=== PATIENT | female | born 1935 | race African-American/Black ===

== ENCOUNTER 2019-07-23 22:35 | Inpatient (IN) | payer MEDICARE, MEDICAID ==
[~2019-07-23] VITALS: Ht 172.7 cm; Wt 68.0 kg
[2019-07-23 23:59] LABS: BASOPHILS % 0.4 % (0.0-2.0); HEMATOCRIT. 40.7 % (36.0-48.0); HEMOGLOBIN. 13.1 g/dL (12.0-16.0); LYMPHOCYTES % 23.4 % (20.0-50.0); MEAN CORPUSCULAR HEMOGLOBIN 29.1 pg (28.0-32.0); MEAN CORPUSCULAR VOLUME 90.5 fL (81.0-99.0); MEAN PLATELET VOLUME 8.2 fl (7.4-10.4); MONOCYTES % 8.9 % (2.0-8.0); NEUTROPHILS % 67.3 % (40.0-76.0); PLATELET 224 x1000/uL (130-400); RED CELL DISTRIBUTION WIDTH 15.3 % (11.6-14.6)
[2019-07-24 00:06] LABS: CHLORIDE 106 mEq/L (98-107)
[2019-07-24] MEDS ORDERED: IPRATROPIUM BROMIDE (0.02%) 0.5MG/2.5ML NEB HHN ONE (00:15)
[2019-07-24] MEDS ORDERED: ALBUTEROL (0.5%) 2.5MG/0.5ML NEB HHN ONE (00:15)
[2019-07-24] MEDS ORDERED: GUAIFENESIN 200MG/10ML SUGAR FREE UDC PO PRN (10:00)
[2019-07-24] MEDS ORDERED: MAGNESIUM/ALUMINUM HYDROXIDE/SIMETHICONE 30ML UDC PO PRN (10:00)
[2019-07-24] MEDS ORDERED: HYDRALAZINE 20MG/ML VIAL IV PRN (10:00)
[2019-07-24] MEDS ORDERED: ACETAMINOPHEN 325MG TABLET PO PRN (10:00)
[2019-07-24] MEDS ORDERED: DIPHENHYDRAMINE 50MG/ML VIAL IV PRN (10:00)
[2019-07-24] MEDS ORDERED: ALBUTEROL 6.7GM HFA INHALER ORI PRN (10:15)
[2019-07-24 12:23] VITALS: BP 214/88
[2019-07-24 12:51] VITALS: BP 165/82
[2019-07-24] MEDS: AZITHROMYCIN 500 MG in DEXT 5% WATER 250 ML IV SCH (14:05)
[2019-07-24] MEDS: SODIUM CHLORIDE 0.9% INJ 3ML FLUSH IVF SCH ×2 (14:25→21:05)
[2019-07-24] MEDS ORDERED: ALBU4TAB6 PO (14:34)
[2019-07-24] MEDS ORDERED: ALBU6.7H9 INH (14:34)
[2019-07-24] MEDS ORDERED: ATOR10TA69 MT (14:45)
[2019-07-24] MEDS ORDERED: IPRA4AER INH (14:45)
[2019-07-24] MEDS ORDERED: FLUT1BLS9 IH (14:45)
[2019-07-24] MEDS ORDERED: MONT10TA26 MT (14:45)
[2019-07-24 15:36] VITALS: BP 191/87
[2019-07-24] MEDS ORDERED: HYDRALAZINE 20MG/ML VIAL IV NR (15:45)
[2019-07-24] MEDS ORDERED: HYDRALAZINE 20MG/ML VIAL IV ONE (15:45)
[2019-07-24 16:23] LABS: BG BASE EXCESS -2.7 mmol/L (-2.0-2.0); BG CARBOXYHEMOGLOBIN 0.3 % (0.5-1.5); BG DEOXYHEMOGLOBIN 2.4 % (0.0-5.0); BG FRACTION INSPIRED OXYGEN 28; BG HCO3 ACT 20.6 mmol/L (22.0-26.0); BG METHEMOGLOBIN 0.3 % (0.0-1.5); BG OXYGEN SATURATION 97.6 % (92.0-98.5); BG PCO2 31.6 mmHg (35.0-45.0); BG PH 7.432 (7.350-7.450); BG PO2 97.1 mmHg (75.0-100.0); BG SAMPLE SITE RIGHT RADIAL; BG VENT MODE NASAL CANNULA
[2019-07-24] MEDS: ACETAMINOPHEN 325MG TABLET PO PRN (16:29)
[2019-07-24] MEDS: ONDANSETRON HCL 4MG/2ML INJ IV PRN (16:35)
[2019-07-24 20:00] VITALS: BP 128/83
[2019-07-24] MEDS: METHYLPREDNISOLONE SOD SUCC 125 MG/2 ML VIAL IV SCH (21:05)
[2019-07-24] MEDS: LOSARTAN POTASSIUM 50 MG TABLET PO SCH (21:05)
[2019-07-24] MEDS: AMLODIPINE 5MG TABLET PO SCH (21:05)
[2019-07-25] VITALS (7 sets, daily range): BP systolic 135–184; BP diastolic 58–96
[2019-07-25] MEDS: HYDRALAZINE 20MG/ML VIAL IV PRN ×2 (05:14→18:12)
[2019-07-25] MEDS: METHYLPREDNISOLONE SOD SUCC 125 MG/2 ML VIAL IV SCH ×3 (05:47→21:27)
[2019-07-25] MEDS: ONDANSETRON HCL 4MG/2ML INJ IV PRN (05:47)
[2019-07-25] MEDS: SODIUM CHLORIDE 0.9% INJ 3ML FLUSH IVF SCH ×3 (05:47→21:28)
[2019-07-25] MEDS ORDERED: LOPE2CAP PO (08:56)
[2019-07-25] MEDS ORDERED: POTA10TA2 PO (08:56)
[2019-07-25] MEDS ORDERED: MECL-183 PO (08:56)
[2019-07-25] MEDS ORDERED: LOSA50TA41 PO (08:56)
[2019-07-25] MEDS ORDERED: CLON0.1T PO (08:56)
[2019-07-25] MEDS ORDERED: FURO40TA5 PO (08:56)
[2019-07-25] MEDS ORDERED: METF-416 PO (08:56)
[2019-07-25] MEDS ORDERED: LOSA25TA26 PO (08:56)
[2019-07-25] MEDS ORDERED: OMEP20CA14 PO (08:56)
[2019-07-25] MEDS ORDERED: IBUP-2029 PO (08:56)
[2019-07-25] MEDS ORDERED: GABA-531 PO (08:56)
[2019-07-25] MEDS ORDERED: ASPI-1497 PO (08:56)
[2019-07-25] MEDS ORDERED: TOPUD PO (08:56)
[2019-07-25] MEDS: AMLODIPINE 5MG TABLET PO SCH ×2 (09:12→20:06)
[2019-07-25] MEDS: LOSARTAN POTASSIUM 50 MG TABLET PO SCH ×2 (09:12→20:06)
[2019-07-25] MEDS: AZITHROMYCIN 500 MG in DEXT 5% WATER 250 ML IV SCH (12:57)
[2019-07-25] MEDS ORDERED: DEXTROSE 50% WATER 50ML SYRINGE IV PRN (17:00)
[2019-07-25] MEDS: BLOOD SUGAR DIAGNOSTIC STRIP TEST SCH ×2 (18:02→21:41)
[2019-07-25] MEDS: ACETAMINOPHEN 325MG TABLET PO PRN (18:11)
[2019-07-25] MEDS: INSULIN LISPRO 100 UNITS/ML SUBCUT SCH ×2 (18:13→21:42)
[2019-07-25] MEDS: IPRATROPIUM/ALBUTEROL 0.5-3(2.5)MG/3ML NEB HHN PRN (20:27)
[2019-07-26 00:48] VITALS: BP 134/53
[2019-07-26 04:00] VITALS: BP 129/57
[2019-07-26] MEDS: METHYLPREDNISOLONE SOD SUCC 125 MG/2 ML VIAL IV SCH ×3 (05:38→21:41)
[2019-07-26] MEDS: DILTIAZEM HCL 60MG TABLET PO SCH ×3 (05:38→21:41)
[2019-07-26] MEDS: SODIUM CHLORIDE 0.9% INJ 3ML FLUSH IVF SCH ×3 (05:38→21:41)
[2019-07-26] MEDS: BLOOD SUGAR DIAGNOSTIC STRIP TEST SCH ×4 (06:17→20:19)
[2019-07-26] MEDS: INSULIN LISPRO 100 UNITS/ML SUBCUT SCH ×5 (06:17→22:07)
[2019-07-26 08:00] VITALS: BP 183/73
[2019-07-26] MEDS: LOSARTAN POTASSIUM 50 MG TABLET PO SCH ×2 (08:12→21:41)
[2019-07-26] MEDS: CLONIDINE 0.1MG TABLET PO PRN (09:42)
[2019-07-26] MEDS: ACETAMINOPHEN 325MG TABLET PO PRN (10:06)
[2019-07-26 12:00] VITALS: BP 133/65
[2019-07-26] MEDS: AZITHROMYCIN 500 MG in DEXT 5% WATER 250 ML IV SCH (12:59)
[2019-07-26] MEDS: IPRATROPIUM/ALBUTEROL 0.5-3(2.5)MG/3ML NEB HHN PRN ×2 (14:55→20:40)
[2019-07-26 16:00] VITALS: BP 140/63
[2019-07-26 20:00] VITALS: BP 133/58
[2019-07-26] MEDS: ZOLPIDEM TARTRATE 5MG TABLET PO PRN (21:43)
[2019-07-27] VITALS: BP 129/61
[2019-07-27 04:00] VITALS: BP 141/55
[2019-07-27] MEDS: DILTIAZEM HCL 60MG TABLET PO SCH ×3 (06:24→21:54)
[2019-07-27] MEDS: SODIUM CHLORIDE 0.9% INJ 3ML FLUSH IVF SCH ×3 (06:24→21:54)
[2019-07-27] MEDS: METHYLPREDNISOLONE SOD SUCC 125 MG/2 ML VIAL IV SCH (06:24)
[2019-07-27] MEDS: BLOOD SUGAR DIAGNOSTIC STRIP TEST SCH ×4 (06:25→21:54)
[2019-07-27] MEDS: INSULIN LISPRO 100 UNITS/ML SUBCUT SCH ×4 (06:49→22:13)
[2019-07-27 07:06] LABS: HEMATOCRIT 34.8 % (36.0-48.0); HEMOGLOBIN 11.7 g/dL (12.0-16.0); MEAN CORPUSCULAR HEMOGLOBIN 29.7 pg (28.0-32.0); MEAN CORPUSCULAR VOLUME 88.7 fL (81.0-99.0); PLATELET 234 x1000/uL (130-400); RED BLOOD CELL COUNT 3.92 mill/uL (4.2-5.4); RED CELL DISTRIBUTION WIDTH 15.2 % (11.6-14.6)
[2019-07-27 08:00] VITALS: BP 147/58
[2019-07-27] MEDS: LOSARTAN POTASSIUM 50 MG TABLET PO SCH ×2 (08:48→21:54)
[2019-07-27] MEDS: IPRATROPIUM/ALBUTEROL 0.5-3(2.5)MG/3ML NEB HHN PRN ×3 (09:46→17:03)
[2019-07-27 12:00] VITALS: BP 173/79
[2019-07-27] MEDS: CLONIDINE 0.1MG TABLET PO PRN (12:48)
[2019-07-27] MEDS: AZITHROMYCIN 500 MG in DEXT 5% WATER 250 ML IV SCH (12:48)
[2019-07-27] MEDS: ACETAMINOPHEN 325MG TABLET PO PRN (12:57)
[2019-07-27 16:00] VITALS: BP 119/44
[2019-07-27 20:41] VITALS: BP 141/46
[2019-07-27] MEDS: METHYLPREDNISOLONE SOD SUCC 40 MG/ML VIAL IV SCH (21:54)
[2019-07-27] MEDS: ZOLPIDEM TARTRATE 5MG TABLET PO PRN (21:54)
[2019-07-28] VITALS (7 sets, daily range): BP systolic 99–157; BP diastolic 49–82
[2019-07-28] MEDS: DILTIAZEM HCL 60MG TABLET PO SCH ×2 (06:00→14:05)
[2019-07-28] MEDS: SODIUM CHLORIDE 0.9% INJ 3ML FLUSH IVF SCH ×2 (06:16→14:00)
[2019-07-28] MEDS: BLOOD SUGAR DIAGNOSTIC STRIP TEST SCH ×4 (06:16→20:41)
[2019-07-28] MEDS: INSULIN LISPRO 100 UNITS/ML SUBCUT SCH ×4 (07:11→20:40)
[2019-07-28] MEDS: METHYLPREDNISOLONE SOD SUCC 40 MG/ML VIAL IV SCH (08:48)
[2019-07-28] MEDS: LOSARTAN POTASSIUM 50 MG TABLET PO SCH ×2 (08:48→20:40)
[2019-07-28] MEDS: GUAIFENESIN 600MG ER TABLET PO SCH ×2 (09:32→20:40)
[2019-07-28] MEDS: AZITHROMYCIN 500 MG in DEXT 5% WATER 250 ML IV SCH (12:19)
[2019-07-28] MEDS: ACETAMINOPHEN 325MG TABLET PO PRN (20:11)
[2019-07-28] MEDS ORDERED: METHYLPREDNISOLONE SOD SUCC 40 MG/ML VIAL IV SCH (21:00)
== END 2019-07-28 20:50 | DRG 193 ==
LOC: ER 22:35 → MICUSO 07-24 04:08 → 7WST 07-24 10:31 → 6WST 07-25 17:32
PROVIDERS: ADMIT Internal Medicine; ATTEND Internal Medicine
DX: J18.9 Pneumonia, unspecified organism (principal); J96.00 Acute respiratory failure, unspecified whether with hypoxia or hypercapnia; G93.41 Metabolic encephalopathy; J44.0 Chronic obstructive pulmonary disease with (acute) lower respiratory infection; J44.1 Chronic obstructive pulmonary disease with (acute) exacerbation; F03.90 Unspecified dementia, unspecified severity, without behavioral disturbance, psychotic disturbance, mood disturbance, and anxiety; F41.9 Anxiety disorder, unspecified; G89.29 Other chronic pain; I10 Essential (primary) hypertension; R41.89 Other symptoms and signs involving cognitive functions and awareness; M54.5 Low back pain; Z20.828 Contact with and (suspected) exposure to other viral communicable diseases; Z82.49 Family history of ischemic heart disease and other diseases of the circulatory system; Z87.891 Personal history of nicotine dependence; Z88.0 Allergy status to penicillin; Z88.1 Allergy status to other antibiotic agents
CPT/HCPCS: 36415; 36600; 71045; 80053; 82375; 82805; 82962; 83036; 83880; 84484; 85025; 85027; 92523; 92610; 93005; 93306; 93970; 94640; 97116; 97162; 97165; 99291; J0360; J0456; J1200; J1815; J2405; J2920; J2930; J7060; U0003-CS

== ENCOUNTER 2019-08-05 15:20 | Inpatient (IN) | payer MEDICARE, MEDICAID ==
[~2019-08-05] VITALS: Ht 172.7 cm; Wt 83.0 kg
[2019-08-05 14:00] VITALS: BP 148/62
[~2019-08-05 15:20] MED LIST: ALBU4TAB6 PO; ALBU6.7H9 INH; ASPI-1497 PO; ATOR10TA69 MT; CLON0.1T PO; FLUT1BLS9 IH; FURO40TA5 PO; GABA-531 PO; IBUP-2029 PO; IPRA4AER INH; LOPE2CAP PO; LOSA25TA26 PO; LOSA50TA41 PO; MECL-183 PO; METF-416 PO; MONT10TA26 MT; OMEP20CA14 PO; POTA10TA2 PO; TOPUD PO
[2019-08-05 16:00] VITALS: BP 148/62
[2019-08-05] MEDS ORDERED: DIATR MEGLU/DIATRIZOATE SOLN 30ML PO SCH (16:00)
[2019-08-05] MEDS: SODIUM CHLORIDE 0.9% 1,000 ML IV SCH (16:05)
[2019-08-05 16:20] VITALS: BP 145/85
[2019-08-05] MEDS ORDERED: DEXTROSE 50% WATER 50ML SYRINGE IV PRN (18:45)
[2019-08-05] MEDS ORDERED: BISACODYL 5MG TABLET PO PRN (18:45)
[2019-08-05] MEDS ORDERED: MAGNESIUM/ALUMINUM HYDROXIDE/SIMETHICONE 30ML UDC PO PRN (18:45)
[2019-08-05] MEDS ORDERED: ONDANSETRON HCL 4MG TABLET PO PRN (18:45)
[2019-08-05] MEDS ORDERED: ZOLPIDEM TARTRATE 5MG TABLET PO PRN (18:45)
[2019-08-05] MEDS ORDERED: CLONIDINE 0.1MG TABLET PO PRN (18:45)
[2019-08-05] MEDS ORDERED: DICYCLOMINE HCL 10MG/ML 2ML AMP IM ONE (18:45)
[2019-08-05] MEDS ORDERED: GUAIFENESIN 200MG/10ML SUGAR FREE UDC PO PRN (18:45)
[2019-08-05] MEDS ORDERED: DIPHENHYDRAMINE 25MG CAPSULE PO PRN (18:45)
[2019-08-05 20:00] VITALS: BP 146/59
[2019-08-05] MEDS: VANCOMYCIN HCL 1000 MG/20 ML ORAL PO SCH (20:50)
[2019-08-05] MEDS: INSULIN LISPRO 100 UNITS/ML SUBCUT SCH (21:00)
[2019-08-05] MEDS: BLOOD SUGAR DIAGNOSTIC STRIP TEST SCH (21:10)
[2019-08-05] MEDS: AZTREONAM 1 G in DEXTROSE 5% WATER 50 ML IV SCH (21:11)
[2019-08-05] MEDS ORDERED: SODIUM CHLORIDE 0.9% 1,000 ML IV SCH (22:00)
[2019-08-05] MEDS: METRONIDAZOLE 500 MG PREMIX 100 ML IV SCH (22:11)
[2019-08-05] MEDS: DILTIAZEM HCL 60MG TABLET PO SCH (22:12)
[2019-08-05] MEDS: CLONIDINE 0.1MG TABLET PO SCH (22:12)
[2019-08-06] VITALS (15 sets, daily range): BP systolic 48–154; BP diastolic 17–101
[2019-08-06] MEDS: ACETAMINOPHEN 325MG TABLET PO PRN ×2 (01:22→20:40)
[2019-08-06] MEDS: SODIUM CHLORIDE 0.9% 1,000 ML IV SCH ×2 (02:09→13:46)
[2019-08-06] MEDS: AZTREONAM 1 G in DEXTROSE 5% WATER 50 ML IV SCH ×2 (06:41→15:59)
[2019-08-06] MEDS: DILTIAZEM HCL 60MG TABLET PO SCH ×2 (06:44→14:00)
[2019-08-06] MEDS: CLONIDINE 0.1MG TABLET PO SCH ×2 (06:44→14:00)
[2019-08-06] MEDS: INSULIN LISPRO 100 UNITS/ML SUBCUT SCH ×4 (06:58→22:30)
[2019-08-06] MEDS: BLOOD SUGAR DIAGNOSTIC STRIP TEST SCH ×4 (06:58→22:30)
[2019-08-06] MEDS: METRONIDAZOLE 500 MG PREMIX 100 ML IV SCH ×2 (07:28→15:59)
[2019-08-06] MEDS ORDERED: DOCUSATE SODIUM 250MG CAPSULE PO SCH (09:00)
[2019-08-06] MEDS ORDERED: LOSARTAN POTASSIUM 50 MG TABLET PO SCH (09:00)
[2019-08-06] MEDS ORDERED: PANTOPRAZOLE SODIUM 40 MG/VIAL IV SCH (09:00)
[2019-08-06 09:22] LABS: BG BASE EXCESS 0.7 mmol/L (-2.0-2.0); BG DEOXYHEMOGLOBIN 14.6 % (0.0-5.0); BG HCO3 ACT 25.9 mmol/L (22.0-26.0); BG METHEMOGLOBIN 0.5 % (0.0-1.5); BG OXYGEN SATURATION 85.2 % (92.0-98.5); BG OXYHEMOGLOBIN 83.9 % (94.0-97.0); BG PCO2 43.6 mmHg (35.0-45.0); BG PH 7.391 (7.350-7.450); BG PO2 49.2 mmHg (75.0-100.0); BG SAMPLE SITE RIGHT BRACHIAL; BG TOTAL HEMOGLOBIN 11.7 g/dL (12.0-18.0); BG VENT MODE ROOM AIR
[2019-08-06] MEDS ORDERED: DOCUSATE SODIUM 250MG CAPSULE PO PRN (10:00)
[2019-08-06] MEDS: VANCOMYCIN HCL 1000 MG/20 ML ORAL PO SCH ×3 (10:15→17:26)
[2019-08-06] MEDS: LEVOFLOXACIN 250MG PREMIX 50 ML IV SCH (12:06)
[2019-08-06 13:08] LABS: CHLORIDE 100 mEq/L (98-107)
[2019-08-06 13:10] LABS: HEMATOCRIT. 33.9 % (36.0-48.0); HEMOGLOBIN. 11.1 g/dL (12.0-16.0); MEAN CORPUSCULAR HEMOGLOBIN 29.1 pg (28.0-32.0); MEAN CORPUSCULAR VOLUME 88.8 fL (81.0-99.0); PLATELET 254 x1000/uL (130-400); RED BLOOD CELL COUNT 3.82 mill/uL (4.2-5.4); RED CELL DISTRIBUTION WIDTH 14.9 % (11.6-14.6)
[2019-08-06 13:19] LABS: T4 FREE 1.55 ng/dL (0.76-1.46)
[2019-08-06 13:43] LABS: PLATELET ESTIMATE NORMAL
[2019-08-06] MEDS: IPRATROPIUM/ALBUTEROL 0.5-3(2.5)MG/3ML NEB HHN SCH ×2 (14:24→20:37)
[2019-08-06] MEDS ORDERED: IOHEXOL-300 100 ML BOTTLE ONE (14:57)
[2019-08-06 18:07] LABS: HEMATOCRIT 32.9 % (36.0-48.0); HEMOGLOBIN 10.9 g/dL (12.0-16.0)
[2019-08-06] MEDS: TRIAMCINOLONE ACETONIDE 0.1% CREAM 15GM TOP SCH (18:21)
[2019-08-06 18:37] LABS: FOLIC ACID (FOLATE) SERUM 17.6 ng/mL (>5.38)
[2019-08-06] MEDS ORDERED: MORPHINE SULFATE 2 MG/ML CPJ (NOT FOR IM USE) IV PRN (20:39)
[2019-08-06] MEDS ORDERED: METHIMAZOLE 5MG TABLET PO SCH (20:45)
[2019-08-06 22:26] LABS: BG CARBOXYHEMOGLOBIN 0.3 % (0.5-1.5); BG DEOXYHEMOGLOBIN 3.7 % (0.0-5.0); BG FRACTION INSPIRED OXYGEN 36; BG HCO3 ACT 14.3 mmol/L (22.0-26.0); BG METHEMOGLOBIN 0.4 % (0.0-1.5); BG OXYGEN SATURATION 96.3 % (92.0-98.5); BG OXYHEMOGLOBIN 95.6 % (94.0-97.0); BG PCO2 34.1 mmHg (35.0-45.0); BG PH 7.241 (7.350-7.450); BG PO2 96.7 mmHg (75.0-100.0); BG SAMPLE SITE RIGHT BRACHIAL; BG TOTAL HEMOGLOBIN 12.5 g/dL (12.0-18.0); BG VENT MODE NASAL CANNULA
[2019-08-06] MEDS ORDERED: MORPHINE SULFATE 4 MG/ML CPJ (NOT FOR IM USE) IV PRN (22:53)
[2019-08-06] MEDS ORDERED: SODIUM BICARBONATE 100 MEQ in SODIUM CHLORIDE 0.45% 1,000 ML IV SCH (23:30)
[2019-08-06] MEDS ORDERED: DILTIAZEM HCL 125 MG in DEXT 5% WATER 100 ML IV PRN (23:30)
[2019-08-07] VITALS (102 sets, daily range): BP systolic 49–223; BP diastolic 18–167
[2019-08-07] MEDS: PHENYLEPHRINE 40 MG in DEXT 5% WATER 246 ML IV PRN ×2 (00:32→09:43)
[2019-08-07] MEDS ORDERED: MIDAZOLAM HCL 100 MG in DEXT 5% WATER 80 ML IV PRN (01:00)
[2019-08-07] MEDS ORDERED: FENTANYL CITRATE/PF 1,000 MCG in SODIUM CHLORIDE 0.9% 80 ML IV PRN (02:00)
[2019-08-07] MEDS ORDERED: NOREPINEPHRINE 8 MG in DEXT 5% WATER 242 ML IV PRN (03:00)
[2019-08-07] MEDS ORDERED: SODIUM BICARBONATE 100 MEQ in DEXTROSE 5% WATER 1,000 ML IV SCH (04:00)
[2019-08-07 04:30] LABS: BG BASE EXCESS -18.4 mmol/L (-2.0-2.0); BG CARBOXYHEMOGLOBIN 0.2 % (0.5-1.5); BG DEOXYHEMOGLOBIN 0.6 % (0.0-5.0); BG FRACTION INSPIRED OXYGEN 80; BG METHEMOGLOBIN 0.5 % (0.0-1.5); BG OXYGEN SATURATION 99.4 % (92.0-98.5); BG OXYHEMOGLOBIN 98.7 % (94.0-97.0); BG PCO2 39.6 mmHg (35.0-45.0); BG PH 7.061 (7.350-7.450); BG PO2 359.3 mmHg (75.0-100.0); BG SAMPLE SITE LEFT BRACHIAL; BG TIDAL VOLUME(mL) 400 mL; BG VENT MODE VENT - A/C; BG VENT RATE 18 set
[2019-08-07] MEDS ORDERED: LACTATED RINGERS 1,000 ML IV SCH (04:30)
[2019-08-07] MEDS ORDERED: ROCURONIUM BROMIDE 10MG/ML VIAL 5ML IV ONE (05:35)
[2019-08-07 05:52] LABS: HEMATOCRIT. 33.9 % (36.0-48.0); HEMOGLOBIN. 10.6 g/dL (12.0-16.0); MEAN CORPUSCULAR HEMOGLOBIN 29.6 pg (28.0-32.0); MEAN CORPUSCULAR VOLUME 94.6 fL (81.0-99.0); MEAN PLATELET VOLUME 8.1 fl (7.4-10.4); PLATELET 260 x1000/uL (130-400); RED BLOOD CELL COUNT 3.58 mill/uL (4.2-5.4); RED CELL DISTRIBUTION WIDTH 15.6 % (11.6-14.6)
[2019-08-07] MEDS: METRONIDAZOLE 500 MG PREMIX 100 ML IV SCH ×3 (06:00→21:59)
[2019-08-07] MEDS ORDERED: DEXT 5%/0.45% NACL KCL 20MEQ/L 1,000 ML IV SCH (08:12)
[2019-08-07] MEDS ORDERED: ACETAMINOPHEN 650MG SUPP PR PRN ×2 (08:15)
[2019-08-07] MEDS ORDERED: METRONIDAZOLE 500 MG PREMIX 100 ML IV SCH (08:15)
[2019-08-07] MEDS ORDERED: LEVOFLOXACIN 500MG PREMIX 100 ML IV SCH (08:15)
[2019-08-07] MEDS ORDERED: MORPHINE SULFATE 2 MG/ML CPJ (NOT FOR IM USE) IV PRN (08:15)
[2019-08-07] MEDS ORDERED: ONDANSETRON HCL 4MG/2ML INJ IV PRN (08:15)
[2019-08-07] MEDS ORDERED: MORPHINE SULFATE 4 MG/ML CPJ (NOT FOR IM USE) IV PRN (08:15)
[2019-08-07] MEDS ORDERED: DEXT 5%/0.45% NACL 1000ML 1,000 ML IV SCH (08:45)
[2019-08-07] MEDS ORDERED: FAMOTIDINE 20MG/2ML VIAL IV SCH (09:00)
[2019-08-07] MEDS: TRIAMCINOLONE ACETONIDE 0.1% CREAM 15GM TOP SCH ×2 (09:00→17:00)
[2019-08-07] MEDS: PANTOPRAZOLE SODIUM 40 MG/VIAL IV SCH ×2 (09:40→21:58)
[2019-08-07 09:46] LABS: BG BASE EXCESS -24.7 mmol/L (-2.0-2.0); BG CARBOXYHEMOGLOBIN 0.2 % (0.5-1.5); BG DEOXYHEMOGLOBIN 1.3 % (0.0-5.0); BG FRACTION INSPIRED OXYGEN 50; BG METHEMOGLOBIN 0.8 % (0.0-1.5); BG OXYGEN SATURATION 98.7 % (92.0-98.5); BG OXYHEMOGLOBIN 97.7 % (94.0-97.0); BG PCO2 37.8 mmHg (35.0-45.0); BG PH 6.885 (7.350-7.450); BG PO2 196.4 mmHg (75.0-100.0); BG SAMPLE SITE A-LINE; BG TIDAL VOLUME(mL) 400 mL; BG TOTAL HEMOGLOBIN 8.4 g/dL (12.0-18.0); BG VENT MODE VENT - A/C; BG VENT RATE 18 set
[2019-08-07] MEDS ORDERED: SODIUM BICARBONATE 8.4% 1 MEQ/ML 50ML SYR IV ONE (09:56)
[2019-08-07] MEDS ORDERED: NOREPINEPHRINE 32 MG in DEXT 5% WATER 468 ML IV PRN (10:00)
[2019-08-07] MEDS ORDERED: PHENYLEPHRINE 40 MG in DEXT 5% WATER 246 ML IV PRN (10:00)
[2019-08-07] MEDS ORDERED: SODIUM BICARBONATE 8.4% 1 MEQ/ML 50ML SYR IV NR ×3 (10:00→13:45)
[2019-08-07] MEDS: DOPAMINE HCL 400 MG in DEXT 5% WATER 240 ML IV PRN ×3 (10:19→20:49)
[2019-08-07 10:20] LABS: HEMATOCRIT. 25.7 % (36.0-48.0); HEMOGLOBIN. 7.5 g/dL (12.0-16.0); MEAN CORPUSCULAR HEMOGLOBIN 29.1 pg (28.0-32.0); MEAN CORPUSCULAR VOLUME 100.5 fL (81.0-99.0); PLATELET 163 x1000/uL (130-400); RED BLOOD CELL COUNT 2.56 mill/uL (4.2-5.4); RED CELL DISTRIBUTION WIDTH 16.8 % (11.6-14.6)
[2019-08-07] MEDS: AZTREONAM 1 G in DEXTROSE 5% WATER 50 ML IV SCH ×3 (10:20→21:58)
[2019-08-07] MEDS ORDERED: DEXT 5%/0.9% NACL 500 ML IV ONE (11:00)
[2019-08-07 11:16] LABS: CHLORIDE 98 mEq/L (98-107)
[2019-08-07 11:45] LABS: BG BASE EXCESS -21.1 mmol/L (-2.0-2.0); BG CARBOXYHEMOGLOBIN 0.3 % (0.5-1.5); BG DEOXYHEMOGLOBIN 0.8 % (0.0-5.0); BG FRACTION INSPIRED OXYGEN 50; BG HCO3 ACT 6.8 mmol/L (22.0-26.0); BG METHEMOGLOBIN 0.5 % (0.0-1.5); BG OXYGEN SATURATION 99.2 % (92.0-98.5); BG OXYHEMOGLOBIN 98.4 % (94.0-97.0); BG PCO2 22.9 mmHg (35.0-45.0); BG PH 7.093 (7.350-7.450); BG PO2 238.1 mmHg (75.0-100.0); BG SAMPLE SITE A-LINE; BG TIDAL VOLUME(mL) 500 mL; BG TOTAL HEMOGLOBIN 6.6 g/dL (12.0-18.0); BG VENT MODE VENT - A/C; BG VENT RATE 30 set
[2019-08-07] MEDS: BLOOD SUGAR DIAGNOSTIC STRIP TEST SCH ×2 (12:00→18:35)
[2019-08-07 12:08] LABS: INR 2.7; PARTIAL THROMBOPLASTIN TIME 66.1 sec (23.4-31.0); PROTHROMBIN TIME 28.4 sec (9.6-11.0)
[2019-08-07] MEDS: LEVOFLOXACIN 250MG PREMIX 50 ML IV SCH (12:16)
[2019-08-07] MEDS: SODIUM BICARBONATE 150 MEQ in DEXTROSE 5% WATER 1,000 ML IV SCH ×3 (12:20→23:52)
[2019-08-07 12:21] LABS: PHOSPHORUS 13.4 mg/dL (2.5-4.9)
[2019-08-07 13:33] LABS: BG BASE EXCESS -15.8 mmol/L (-2.0-2.0); BG CARBOXYHEMOGLOBIN 0.3 % (0.5-1.5); BG DEOXYHEMOGLOBIN 0.9 % (0.0-5.0); BG FRACTION INSPIRED OXYGEN 50; BG HCO3 ACT 9.3 mmol/L (22.0-26.0); BG METHEMOGLOBIN 1.4 % (0.0-1.5); BG OXYGEN SATURATION 99.1 % (92.0-98.5); BG OXYHEMOGLOBIN 97.4 % (94.0-97.0); BG PCO2 20.1 mmHg (35.0-45.0); BG PH 7.282 (7.350-7.450); BG PO2 200.7 mmHg (75.0-100.0); BG SAMPLE SITE A-LINE; BG TIDAL VOLUME(mL) 500 mL; BG TOTAL HEMOGLOBIN 7.4 g/dL (12.0-18.0); BG VENT MODE VENT - A/C; BG VENT RATE 30 set
[2019-08-07 13:50] LABS: NUCLEATED RED BLOOD CELLS 2 /100 WBC
[2019-08-07 13:53] LABS: PLATELET ESTIMATE NORMAL
[2019-08-07 14:00] LABS: PLATELET ESTIMATE NORMAL
[2019-08-07] MEDS: INSULIN LISPRO 100 UNITS/ML SUBCUT SCH ×2 (14:12→18:38)
[2019-08-07] MEDS ORDERED: CALCIUM GLUCONATE 1,000 MG in DEXT 5% WATER 90 ML IV SCH (15:00)
[2019-08-07] MEDS: PHENYLEPHRINE 80 MG in DEXT 5% WATER 492 ML IV PRN ×2 (16:10→23:53)
[2019-08-07] MEDS: IPRATROPIUM BROMIDE (0.02%) 0.5MG/2.5ML NEB HHN SCH ×2 (16:14→20:51)
[2019-08-07 17:14] LABS: CHLORIDE 92 mEq/L (98-107)
[2019-08-07] MEDS: HYDROCORTISONE SOD SUCCINATE 100 MG/2 ML VIAL IV SCH (22:00)
[2019-08-08] VITALS (29 sets, daily range): BP systolic 57–153; BP diastolic 21–69
[2019-08-08] MEDS: BLOOD SUGAR DIAGNOSTIC STRIP TEST SCH
[2019-08-08] MEDS ORDERED: DEXTROSE 50% WATER 50ML SYRINGE IV PRN (00:30)
[2019-08-08] MEDS ORDERED: INSULIN REGULAR (HUMULIN R) 300UNITS/3ML IV SCH (00:30)
[2019-08-08] MEDS: DOPAMINE HCL 400 MG in DEXT 5% WATER 240 ML IV PRN ×3 (01:08→06:59)
[2019-08-08] MEDS: SODIUM BICARBONATE 150 MEQ in SODIUM CHLORIDE 0.45% 1,000 ML IV SCH ×2 (01:23→06:58)
[2019-08-08] MEDS ORDERED: INSULIN LISPRO 100 UNITS/ML SUBCUT SCH ×3 (01:30→12:00)
[2019-08-08] MEDS: AZTREONAM 1 G in DEXTROSE 5% WATER 50 ML IV SCH (05:49)
[2019-08-08] MEDS: METRONIDAZOLE 500 MG PREMIX 100 ML IV SCH (05:50)
[2019-08-08] MEDS: HYDROCORTISONE SOD SUCCINATE 100 MG/2 ML VIAL IV SCH (05:50)
[2019-08-08] MEDS ORDERED: BLOOD SUGAR DIAGNOSTIC STRIP TEST SCH (06:20)
[2019-08-08] MEDS: PHENYLEPHRINE 80 MG in DEXT 5% WATER 492 ML IV PRN (07:11)
[2019-08-08] MEDS ORDERED: ATROPINE SULFATE 1MG/10ML SYR ONE (08:35)
[2019-08-08] MEDS: IPRATROPIUM BROMIDE (0.02%) 0.5MG/2.5ML NEB HHN SCH (08:48)
[2019-08-08] MEDS ORDERED: SODIUM BICARBONATE 8.4% MEQ/ML 50ML VIAL IV ONE (09:06)
[2019-08-08] MEDS ORDERED: EPINEPHRINE 0.1MG/ML (1:10,000) 10ML SYR ONE (09:06)
[2019-08-08] MEDS ORDERED: DEXTROSE 50% WATER 50ML VIAL IV ONE (09:06)
== END 2019-08-08 09:06 | disposition expired | DRG 853 ==
LOC: 5WST 15:20 → CVICU 08-06 22:00
PROVIDERS: ADMIT Internal Medicine; ATTEND Internal Medicine
PROC: 0D9670Z Drainage of Stomach with Drainage Device, Via Natural or Artificial Opening (ICD-10-PCS; 2019-08-06)
PROC: 0DNB0ZZ Release Ileum, Open Approach (ICD-10-PCS; 2019-08-07)
PROC: 0DBK0ZZ Excision of Ascending Colon, Open Approach (ICD-10-PCS; 2019-08-07)
PROC: 0DBB0ZZ Excision of Ileum, Open Approach (ICD-10-PCS; 2019-08-07)
PROC: 06HY33Z Insertion of Infusion Device into Lower Vein, Percutaneous Approach (ICD-10-PCS; 2019-08-07)
PROC: B54BZZA Ultrasonography of Right Lower Extremity Veins, Guidance (ICD-10-PCS; 2019-08-07)
PROC: 0BH17EZ Insertion of Endotracheal Airway into Trachea, Via Natural or Artificial Opening (ICD-10-PCS; 2019-08-07)
PROC: 5A1935Z Respiratory Ventilation, Less than 24 Consecutive Hours (ICD-10-PCS; 2019-08-07)
PROC: 5A12012 Performance of Cardiac Output, Single, Manual (ICD-10-PCS; principal; 2019-08-08)
DX: A41.9 Sepsis, unspecified organism (principal); G93.41 Metabolic encephalopathy; R65.21 Severe sepsis with septic shock; J96.01 Acute respiratory failure with hypoxia; K72.00 Acute and subacute hepatic failure without coma; K63.1 Perforation of intestine (nontraumatic); E46 Unspecified protein-calorie malnutrition; E87.1 Hypo-osmolality and hyponatremia; E87.2 Acidosis; J44.1 Chronic obstructive pulmonary disease with (acute) exacerbation; N17.9 Acute kidney failure, unspecified; K92.2 Gastrointestinal hemorrhage, unspecified; K56.609 Unspecified intestinal obstruction, unspecified as to partial versus complete obstruction; D64.9 Anemia, unspecified; E05.90 Thyrotoxicosis, unspecified without thyrotoxic crisis or storm; E11.9 Type 2 diabetes mellitus without complications; E78.5 Hyperlipidemia, unspecified; E83.39 Other disorders of phosphorus metabolism; E83.51 Hypocalcemia; E86.0 Dehydration; E86.1 Hypovolemia; E87.5 Hyperkalemia; F03.90 Unspecified dementia, unspecified severity, without behavioral disturbance, psychotic disturbance, mood disturbance, and anxiety; F41.9 Anxiety disorder, unspecified; G89.29 Other chronic pain; M54.5 Low back pain; I10 Essential (primary) hypertension; Z66 Do not resuscitate; R26.9 Unspecified abnormalities of gait and mobility; I46.9 Cardiac arrest, cause unspecified; Z20.828 Contact with and (suspected) exposure to other viral communicable diseases; Z88.0 Allergy status to penicillin; Z87.891 Personal history of nicotine dependence; Z90.710 Acquired absence of both cervix and uterus; Z68.27 Body mass index [BMI] 27.0-27.9, adult; Z79.899 Other long term (current) drug therapy
CPT/HCPCS: 36415; 36600; 71045; 74018; 74177; 76937; 80048; 80053; 82330; 82375; 82533; 82607; 82728; 82746; 82805; 82962; 83036; 83540; 83550; 83605; 83735; 84100; 84439; 84443; 84481; 85014; 85018; 85025; 86850; 86900; 86920; 86927; 87070; 87075; 87077; 87186; C1752; C9113; J0461; J0610; J1265; J1720; J1815; J1956; J2270; J2370; J3370; J3490; J7030; J7060; J7070; P9016; P9017; Q9963; Q9967